=== PATIENT | male | born 1995 | race Caucasian/White ===

== ENCOUNTER 2022-05-04 11:45 | Emergency (ER) | payer BC ==
[2022-05-04] MEDS ORDERED: Orphenadrine 60 MG/2 ML Inj IM ONE (13:13)
[2022-05-04] MEDS ORDERED: Ketorolac 60 MG/2 ML SDV IM ONE (13:13)
[2022-05-04] MEDS ORDERED: Diazepam 2 MG Tab PO ONE (13:14)
== END 2022-05-04 15:15 | disposition home or self-care (01) ==
LOC: MW.ED 11:45
DX: M54.41 Lumbago with sciatica, right side (principal); F17.210 Nicotine dependence, cigarettes, uncomplicated; X50.0XXA Overexertion from strenuous movement or load, initial encounter
CPT/HCPCS: 72131; 96372; 99283; A9270; J1885; J2360

== ENCOUNTER 2023-09-24 11:51 | Emergency (ER) | payer BC ==
[2023-09-24] MEDS: predniSONE 20 MG Tab PO ONE (12:24)
[2023-09-24] MEDS: Orphenadrine 60 MG/2 ML Inj IM ONE (12:25)
[2023-09-24] MEDS: Ketorolac 60 MG/2 ML SDV IM ONE (12:25)
== END 2023-09-24 12:57 | disposition home or self-care (01) ==
LOC: MW.ED 11:51
DX: M54.50 Low back pain, unspecified (principal); Z75.8 Other problems related to medical facilities and other health care
CPT/HCPCS: 96372; 99283; A9270; J1885; J2360